=== PATIENT | male | born 1955 | race African-American/Black ===

== ENCOUNTER 2016-06-18 05:02 | Emergency (ER) | payer MEDICAID, OTHER ==
[~2016-06-18] VITALS: Ht 182.9 cm; Wt 71.5 kg
[2016-06-18 05:07] VITALS: Ht 182.9 cm; Wt 71.5 kg
[2016-06-18] MEDS ORDERED: LORAZEPAM 2 MG INJ IV STA (05:44)
[2016-06-18] MEDS ORDERED: SOD CHLORIDE 0.9% 500 ML IV STA (05:44)
--- NOTE | 2016-06-18 06:42 | RADRPT ---
PROCEDURE: CT Brain without. CLINICAL INDICATION: Seizure TECHNIQUE: A CT of the brain was performed utilizing axial sections from the skull base through th e vertex without contrast. The scan was reviewed in soft tissue brain and high frequency resolution bone algorithm windows. Images were reviewed on a high-resolution PACS workstation. One or more of the following dose reduction techniques were used: Automated exposure control, Adjust ment of the mA and/or kV according to patient size, and/or Use of iterative reconstruction technique . The exam CTDI = 45.01 mGy, and the DLP = 720.23 mGy-cm. COMPARISON: None available FINDINGS: The ventricles are normal in size and midline in position. There is no intracranial hemorrhage, mid line shift, or mass effect. No abnormal extra-axial fluid collections are identified. The rincon-whi te differentiation is well preserved. The basal cisterns are patent. The posterior fossa is unrema rkable. The visualized portions of the orbits are unremarkable. The paranasal sinuses are clear. There is partial opacification of the right mastoid air cells. No calvarial fracture or abnormality are iden tified. The soft tissues are unremarkable. IMPRESSION: 1. No acute intracranial abnormality identified. 2. Partial opacification of the right mastoid air cells. RPTAT: HH .Danya Woods MD, MD Date Time Electronically viewed and signed by .Danya Woods MD, MD on 06/18/2016 06:41 .G/
[2016-06-18 07:42] LABS: ADD SCAN DIFF NO
[2016-06-18 07:51] LABS: BASOPHILS % 0.4 % (0.0-2.0); EOSINOPHILS % 0.2 % (0.0-7.0); HEMATOCRIT 38.4 % (42.0-52.0); HEMOGLOBIN 13.1 g/dl (14.0-18.0); LYMPHOCYTES # 1.4 10^3/ul (0.8-2.9); LYMPHOCYTES % 13.4 % (15.0-51.0); MEAN CORPUSCULAR HGB CONC 34.1 g/dl (32.0-37.0); MEAN CORPUSCULAR VOLUME 87.9 fl (82.0-101.0); MEAN PLATELET VOLUME 9.7 fl (7.4-10.4); MONOCYTES % 10.3 % (0.0-11.0); NEUTROPHIL # 7.6 10^3/ul (1.6-7.5); NEUTROPHILS % 75.4 % (39.0-77.0); PLATELET COUNT 263 10^3/UL (140-415); RED BLOOD COUNT 4.37 10^6/ul (4.70-6.10); RED CELL DISTRIBUTION WIDTH 12.4 % (11.5-14.5)
[2016-06-18] MEDS ORDERED: PHEN300C2 PO (07:57)
[2016-06-18 08:04] LABS: CREATININE 0.47 mg/dl (0.61-1.24)
[2016-06-18 08:41] VITALS: BP 103/65; PULSE 77; RESP 14
--- NOTE | 2016-06-18 15:43 | ERD ---
ER Documentation Chief Complaint Date/Time DATE: 06/18/16 TIME: 15:40 Chief Complaint states been having seizures today HPI 60-year-old man with a history of seizure disorder presents status post tonic- clonic seizure and general lethargy. He was initially postictal although also admits to being sleepy because of daily opioid use. He denies suicidal homicidal ideation, no fevers or chills, no loss of bowel or bladder control. Patient was transported here by EMS without further complications. ROS All systems reviewed and are negative except as per history of present illness. Medications Home Meds Active Scripts Phenytoin* Sodium Extended (Dilantin*) 300 Mg Capsule, 300 MG PO BID, #60 CAP Prov:MARICHUY PFEIFFER MD 06/18/16 Allergies Allergies: Coded Allergies: No Known Drug Allergies (Verified Allergy, Unknown, 06/18/16) PMhx/Soc Seizure disorder, possible opioid use, dementia Medical and Surgical Hx: pt denies Surgical Hx Hx Neurological Disorder: Yes (seizures) Hx Psychiatric Problems: Yes (pt denies, however, he seems delayed) Hx Alcohol Use: Yes (alcoholic, drank today) Hx Substance Use: Yes (marijuana) Hx Tobacco Use: No Smoking Status: Never smoker FmHx Family History: No diabetes Physical Exam Vitals Vital Signs Date Time Temp Pulse Resp B/P Pulse Ox O2 Delivery O2 Flow Rate FiO2 06/18/16 08:41 77 14 103/65 98 Room Air 06/18/16 07:36 79 14 98/65 98 Room Air 06/18/16 05:07 98.4 122 20 146/86 98 Physical Exam GENERAL: Well-developed, well-nourished, lethargic but arousable HEENT: Moist mucous membranes, pink conjunctiva, no cervical spine tenderness or step-off deformities, no goiter, no jaundice or icterus, extraocular movements intact without pain. No submandibular induration, and no pharyngeal erythema NEURO: Alert and oriented 3, cranial nerves II through XII intact bilaterally, pupils equal round reactive to light, no focal deficits or facial asymmetry, sensation intact distally Strength 5/5 in upper and lower extremities bilaterally CARDIAC: Regular rate and rhythm, no murmurs rubs or gallops LUNGS: Clear bilaterally no wheezing crackles or stridor ABDOMEN: Soft nontender, no guarding, no rigidity, no rebound, no psoas sign no obturator sign. Normoactive bowel sounds SKIN: Warm and dry to touch, no abrasions, contusions, or hematomas, no lacerations, no ecchymosis, no target lesions, and without ulcers EXTREMITIES: No clubbing cyanosis or edema, calves are bilaterally symmetrical, no Homans sign, no popliteal cord sign. Distal pulses equal and bilateral PSYCH: Normal affect without agitation or irritability Result Diagram: 06/18/16 0706/18/16 07 Results 24 hrs Laboratory Tests Test 06/18/16 07:03 White Blood Count 10.010^3/ul Red Blood Count 4.3710^6/ul Hemoglobin 13.1g/dl Hematocrit 38.4% Mean Corpuscular Volume 87.9fl Mean Corpuscular Hemoglobin 30.0pg Mean Corpuscular Hemoglobin Concent 34.1g/dl Red Cell Distribution Width 12.4% Platelet Count 56521^3/UL Mean Platelet Volume 9.7fl Neutrophils % 75.4% Lymphocytes % 13.4% Monocytes % 10.3% Eosinophils % 0.2% Basophils % 0.4% Nucleated Red Blood Cells % 0.0/100WBC Neutrophils # 7.610^3/ul Lymphocytes # 1.410^3/ul Monocytes # 1.010^3/ul Eosinophils # 0.010^3/ul Basophils # 0.010^3/ul Nucleated Red Blood Cells # 0.010^3/ul Sodium Level 130mmol/L Potassium Level 5.0mmol/L Chloride Level 96mmol/L Carbon Dioxide Level 22mmol/L Anion Gap 17 Blood Urea Nitrogen 8mg/dl Creatinine 0.47mg/dl Glucose Level 93mg/dl Calcium Level 9.0mg/dl Current Medications Medications (Trade) Dose Ordered Sig/Rhiannon Route PRN Reason Start Time Stop Time Status Last Admin Dose Admin Sodium Chloride (NS) 500 ml @ 500 mls/hr Q1H STAT IV 06/18/16 05:44 06/18/16 06:43 DC 06/18/16 07:07 Lorazepam (Ativan) 1 mg ONCE STAT IV 06/18/16 05:44 06/18/16 05:45 DC 06/18/16 07:07 Procedures/MDM IV line was established patient was placed on cardiac cath rn rhythm strip revealed a sinus rhythm at about 80 bpm with upright P and T waves. Patient was afebrile. I administered 1 L normal saline intravenously and lorazepam 1 mg IV with good response. CT scan of the brain was performed that was negative for acute bleed mass or shift. CBC and electrolytes were normal. Patient's mental status improved dramatically and he was ambulatory without difficulty. Observation Note: Time: 4-1/2 hours Family Hx: No Hypertension Evaluation: Multiple exams showed improving symptoms and no evidence of seizures or worsening mental status. Eventually [employer] officers called and asked about this patient, it seems he has been a missing person for the last few days, his family was worried about him, [employer] officers came to this emergency department and agreed to take the patient home. Differential diagnoses considered, included but not limited to acute coronary syndrome, pulmonary embolism, aortic dissection, abdominal aortic aneurysm, sepsis, stroke, meningitis, encephalitis, pneumonia, appendicitis, cholecystitis , bowel obstruction, pyelonephritis, nephrolithiasis, cystitis, as well as metabolic, hematologic, and electrolyte abnormalities. As well as abscess, cellulitis, fractures, and dislocations. Patient feels much better at this time, and vital signs are normal, symptoms have improved. I did give strict instructions to return to the ED if symptoms continue or worsen, patient will otherwise follow-up with primary care physician. Patient understood instructions and agreed to plan. Departure Diagnosis: Primary Impression: Seizure disorder Condition: Good Patient Instructions: Seizure, Recurrent [Adult] MARICHUY PFEIFFER MD June 18, 2016 15:43
== END 2016-06-18 12:20 | disposition home or self-care (01) ==
LOC: E/R 05:02
DX: G40.909 Epilepsy, unspecified, not intractable, without status epilepticus (principal); R40.2242 Coma scale, best verbal response, confused conversation, at arrival to emergency department; R40.2142 Coma scale, eyes open, spontaneous, at arrival to emergency department; R40.2362 Coma scale, best motor response, obeys commands, at arrival to emergency department; R93.0 Abnormal findings on diagnostic imaging of skull and head, not elsewhere classified
CPT/HCPCS: 36415; 70450; 80048; 85025; 96374; J2060; J7040; Z7502